=== PATIENT | female | born 1945 | race Caucasian/White ===

== ENCOUNTER 2017-01-15 10:42 | Inpatient (IN) ==
[2017-01-12 12:59] LABS: Appearance,Urine CLEAR; Bilirubin,Urine NEG (NEG); Color,Urine YELLOW; Glucose,Urine (UA) NEGATIVE (NEG); Leukocyte Esterase,Urine NEG /uL (NEG); Nitrate,Urine NEG (NEG); Protein,Urine NEG (NEG); Specific Gravity,Urine 1.018 (1.000-1.035); Urine Blood NEG mg/dL (<0.03); Urobilinogen,Urine NEG (NEG)
[2017-01-12 13:23] LABS: Basophils # (Auto) 0 K/mcL (0.0-0.3); Basophils % (Auto) 0.8 % (0.0-2.0); Eosinophils # (Auto) 0.3 K/mcL (0.0-0.7); Eosinophils % (Auto) 4.3 % (0.0-7.0); Lymphocytes # (Auto) 1.4 K/mcL (1.5-4.8); Lymphocytes % (Auto) 23.3 % (15.5-49.0); Mean Cell Volume 88.1 fL (80.0-100.0); Mean Corpuscular HGB Conc 33.9 g/dL (31.0-36.0); Mean Corpuscular Hemoglobin 29.9 pg (26.0-34.0); Monocytes # (Auto) 0.4 K/mcL (0.1-0.9); Monocytes % (Auto) 6.6 % (1.0-12.0); Platelet Count 268 K/mcL (140-440); RBC 5.34 M/mcL (4.00-5.20); Red Cell Distribution Width 13.3 % (11.5-14.5)
[2017-01-12 13:36] LABS: Blood Urea Nitrogen 27 mg/dl (8-23)
[~2017-01-15 10:42] MED LIST: ACETAMINOPHEN 500 MG TABLET PO SCH; CELECOXIB 200 MG CAPSULE PO SCH; KETOROLAC 30 MG, ROPIVACAINE HCL/PF 49.5 ML, EPINEPHrine 0.5 MG, 0.9 % SODIUM CHLORIDE ... IJ SCH; PREGABALIN 25 MG CAPSULE PO SCH; ceFAZolin 1 GM VIAL IV SCH; oxyCODONE 10 MG TAB.ER.12H PO SCH
[2017-01-15] MEDS ORDERED: IPRATROPIUM/ALBUTEROL 3 ML AMPUL.NEB NEB ONE ×2 (13:26→13:29)
[2017-01-15] MEDS ORDERED: GENTAMICIN SULFATE 800 MG/20 ML VIAL IR ONE (13:29)
[2017-01-15] MEDS ORDERED: PHENYLEPHRINE 10 MG/ML VIAL IV ONE (14:00)
[2017-01-15] MEDS ORDERED: ePHEDrine 50 MG/ML AMPUL IV ONE (14:00)
[2017-01-15] MEDS ORDERED: ROPIVACAINE HCL/PF 20 ML VIAL IJ ONE (14:00)
[2017-01-15] MEDS ORDERED: ONDANSETRON 4 MG/2 ML VIAL IV ONE (14:00)
[2017-01-15] MEDS ORDERED: PROPOFOL 200 MG/20 ML VIAL IV ONE (14:00)
[2017-01-15] MEDS ORDERED: LIDOCAINE HCL/PF 100 MG/5 ML SYRINGE IV ONE (14:00)
[2017-01-15] MEDS ORDERED: DEXAMETHASONE 10 MG/ML VIAL IV ONE (14:00)
[2017-01-15] MEDS ORDERED: MIDAZOLAM 5 MG/5 ML VIAL IV ONE (14:00)
--- NOTE | 2017-01-15 14:06 | Brief Operative Note ---
Date of procedure: 01/15/17 Pre-op diagnosis: Left knee djd Post-op diagnosis: same Procedure: left TKA Grafts/Implants: Yes Anesthesia: KEYONAA Surgeon: Valentino Cramer Estimated blood loss (cc): 65 Tourniquet Time (Minutes): 65 Specimens Removed/Pathology: none sent Condition: stable Disposition: PACU
[2017-01-15] MEDS ORDERED: BENZOCAINE/MENTHOL 1 LOZENGE PO PRN ×2 (14:07→15:24)
[2017-01-15] MEDS ORDERED: FLEETS ADULT ENEMA PR PRN (14:07)
[2017-01-15] MEDS ORDERED: ONDANSETRON 4 MG/2 ML VIAL IV PRN ×2 (14:07→15:24)
[2017-01-15] MEDS ORDERED: POLYETHYLENE GLYCOL 3350 17 GM PACKET PO PRN (14:07)
[2017-01-15] MEDS ORDERED: HYDROcodone/APAP 10/325MG TABLET PO PRN (14:07)
[2017-01-15] MEDS ORDERED: HYDROmorphone 2 MG/ML SYRINGE IV PRN ×2 (14:07→15:24)
[2017-01-15] MEDS ORDERED: MAGNESIUM HYDROXIDE 30 ML ORAL.SUSP PO PRN (14:07)
[2017-01-15] MEDS ORDERED: TRANEXAMIC ACID 1,000 MG/10 ML VIAL IV ONE (14:07)
[2017-01-15] MEDS ORDERED: TEMAZEPAM 15 MG CAPSULE PO PRN (14:07)
[2017-01-15] MEDS ORDERED: ACETAMINOPHEN 325 MG TABLET PO PRN (14:07)
[2017-01-15] MEDS ORDERED: BISACODYL 10 MG SUPP.RECT PR PRN (14:07)
[2017-01-15] MEDS ORDERED: FLUMAZENIL 0.1 MG/ML ML IV PRN (15:24)
[2017-01-15] MEDS ORDERED: NALOXONE HCL 0.4 MG/ML VIAL IV PRN (15:24)
[2017-01-15] MEDS ORDERED: fentaNYL 100 MCG/2 ML VIAL IV PRN (15:24)
[2017-01-15] MEDS ORDERED: MEPERIDINE 25 MG/ML SYRINGE IV PRN (15:24)
[2017-01-15] MEDS ORDERED: METHOCARBAMOL 1,000 MG/10 ML VIAL IV PRN (15:24)
[2017-01-15] MEDS ORDERED: METOPROLOL TARTRATE 5 MG/5 ML VIAL IV PRN (15:24)
[2017-01-15] MEDS ORDERED: ATROPINE SULFATE 0.4 MG/ML VIAL IV PRN (15:24)
[2017-01-15] MEDS ORDERED: diphenhydrAMINE 50 MG/ML VIAL IV PRN (15:24)
[2017-01-15] MEDS ORDERED: IPRATROPIUM/ALBUTEROL 3 ML AMPUL.NEB NEB PRN (15:24)
[2017-01-15] MEDS ORDERED: ePHEDrine 50 MG/ML AMPUL IV PRN (15:24)
[2017-01-15] MEDS ORDERED: LACTATED RINGERS 1,000 ML IV SCH (15:30)
--- NOTE | 2017-01-15 16:16 | Discharge Summary ---
Ortho Discharge - TKA - Patient Instructions Diet: Regular Diet Activity: activity as tolerated, weight bearing as tolerated Total Knee Protocol: For Total Knee: Start ROM PRINCE with stationary bike or rocking chair. Work on gaining full extension of knee. Posterior dislocation precautions provided. Hip abductor strengthening and gait training instructions provided. Apply Cryocuff as instructed. Dressing Care: Aquacel Ag - leave on for 5 days - Follow Up Plan Follow Up Appointments: Valentino Cramer MD [Physician] - 01/28/17 1:10 pm Disposition: Home, Self-Care Prognosis: Good Rehab Potential: Good I certify that the patient requires SNF services: No Overall status at discharge: patient is progressing back to baseline
--- NOTE | 2017-01-15 16:20 | Discharge Summary ---
Ortho Discharge - TKA - Patient Instructions Diet: Regular Diet Activity: activity as tolerated, weight bearing as tolerated Total Knee Protocol: For Total Knee: Start ROM PRINCE with stationary bike or rocking chair. Work on gaining full extension of knee. Posterior dislocation precautions provided. Hip abductor strengthening and gait training instructions provided. Apply Cryocuff as instructed. Dressing Care: May shower in 2 days, Aquacel Ag - leave on for 5 days - Follow Up Plan Follow Up Appointments: Valentino Cramer MD [Physician] - 01/28/17 1:10 pm Disposition: Home, Self-Care Prognosis: Good Rehab Potential: Good I certify that the patient requires SNF services: No Overall status at discharge: patient is progressing back to baseline - Orders For Discharge Additional Discharge Orders: Physical Therapy at Discharge - TKA Location: Determined By Patient CPM Discharge Order Location: Determined By Patient Toilet Riser Discharge Order Location: Determined By Patient Walker Location: Determined By Patient
[2017-01-15] MEDS: 0.45 % SODIUM CHLORIDE 1,000 ML IV SCH ×2 (17:32→23:52)
[2017-01-15] MEDS: KETOROLAC 15 MG/ML VIAL IV SCH ×2 (17:32→23:49)
--- NOTE | 2017-01-15 17:39 | XRay Report ---
CLINICAL INFORMATION: Postop total knee prostheses COMPARISON: None. FINDINGS: Total knee prostheses is anatomically aligned. No osseous normality. Soft tissues swelling seen as expected IMPRESSION: Negative Interpreted and Authenticated by: Jose Contreras 01/15/17
[2017-01-15] MEDS: ASPIRIN 325 MG ENTERIC COATED TABLET PO SCH (20:34)
[2017-01-15] MEDS: DOCUSATE SODIUM 100 MG CAPSULE PO SCH (20:34)
[2017-01-15] MEDS: 0.9 % SODIUM CHLORIDE 10 ML SYRINGE IV SCH (20:35)
[2017-01-15] MEDS ORDERED: SENNOSIDES 1 TABLET PO SCH (21:00)
[2017-01-15] MEDS: ceFAZolin 1 GM VIAL IV SCH (21:06)
[2017-01-16] MEDS: ceFAZolin 1 GM VIAL IV SCH (05:00)
[2017-01-16] MEDS: 0.9 % SODIUM CHLORIDE 10 ML SYRINGE IV SCH ×3 (05:00→14:18)
[2017-01-16] MEDS: KETOROLAC 15 MG/ML VIAL IV SCH ×2 (05:57→11:35)
[2017-01-16] MEDS: DOCUSATE SODIUM 100 MG CAPSULE PO SCH (07:59)
[2017-01-16] MEDS: ASPIRIN 325 MG ENTERIC COATED TABLET PO SCH ×2 (07:59→08:01)
[2017-01-16] MEDS: 0.45 % SODIUM CHLORIDE 1,000 ML IV SCH (08:24)
[2017-01-16] MEDS ORDERED: APIXABAN 5 MG TABLET PO SCH (09:00)
--- NOTE | 2017-01-18 10:24 | Operative Note ---
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 PROCEDURE: Left robotic total knee arthroplasty. SURGEON: Valentino Cramer MD CLIENT SUPPORT ADMINISTRATOR: Clarissa Lewis PA-C ANESTHESIA: General LMA anesthesia. COMPLICATIONS: None. TOTAL TOURNIQUET TIME: 68 minutes. ESTIMATED BLOOD LOSS: About 25 mL DESCRIPTION OF PROCEDURE: The patient was brought to the operating room and put to sleep with general LMA anesthesia. Once asleep, the patient had the left leg sterilely prepped and draped in the usual sterile fashion. Once complete and we confirmed the operative site, the left leg had Ioban placed over the skin and Esmarch placed and exsanguinated 250 pounds of pressure placed on the tourniquet. A midline incision was made with a mid vastus approach to the knee, subluxed the patella revealing severe arthritis of the trochlear groove, medial compartment and lateral compartment with spurs medially and laterally. At this point, we placed the arrays above and below the knee for the robot. We then registered 30 points on the femur and tibia. We placed intraarticular pins, one on the femur, one on the tibia. Once these were all registered we then balanced the knee after removing osteophytes. We centered the hip rotation, balanced the knee with varus valgus stress after removing osteophytes. We irrigated thoroughly and then stressed the knee, both at 15 and 90 degrees, both varus and valgus. Once we balanced the knee we reoriented the implant and then irrigated thoroughly and then brought the robot in, registered the robot and the femur. We made our distal femoral cut and made our posterior chamfer cuts. We changed the blade angle. This was reregistered and we then made our anterior, posterior cut, our anterior chamfer cut and anterior cut. These bony fragments were removed. We then made our tibial cut. Once I did this, I then removed the bony fragments and set rotation for the tibial base plate into place. This was a size 4. We removed any osteophytes and then removed osteophytes posteriorly. We then placed a size 4 femur, removed any more osteophytes and then trialed a size 9 poly. This was the most appropriate with varus valgus stress equaling 1 mm of play both sides both flexion and extension. We irrigated thoroughly and I then some prepared the patella measuring 22 mm, cut to 12 mm total thickness and then placed an oval 32 mm patellar button. We irrigated thoroughly and cemented into place the above-mentioned sizes. Excess cement was removed, 9 mm poly. This was a cruciate retained design. We washed the knee out several times after the cement had dried and retested the ligament. We put the final 9 mm poly in after the dried cement. We irrigated thoroughly and then closed the mid vastus approach with #1 Stratafix and #1 Vicryl and closed the skin with 2-0 Vicryl and wilmer. The patient tolerated this well. The portals were closed with #2 Vicryl. No complication. Tourniquet deflated at 68 minutes. RBH:errol Job ID: [id number] Doc ID: [id number] Valentino Cramer MD
== END 2017-01-16 13:10 | disposition home or self-care (01) | DRG 470 ==
LOC: MEDSUR 10:42
PROVIDERS: ADMIT Orthopaedic Surgery; ATTEND Orthopaedic Surgery